=== PATIENT | male | born 1975 | race Caucasian/White ===

== ENCOUNTER 2017-08-01 10:59 | Emergency (ER) | payer OTHER ==
[~2017-08-01] VITALS: Ht 177.8 cm; Wt 107.7 kg
[2017-08-01] MEDS ORDERED: ROBAXIN500 MG PO (12:31)
[2017-08-01] MEDS ORDERED: MEDROL DOSEPAK4 MG PO (12:31)
[2017-08-01] MEDS ORDERED: PERCOCET 5/31 TABLET PO (12:31)
[2017-08-01 12:42] LABS: APPEARANCE CLEAR ((CLEAR)); BILIRUBIN NEGATIVE; BLOOD SMALL; COLOR YELLOW ((YELLOW)); GLUCOSE (STRIP) NEGATIVE; KETONES 5; LEUKOCYTES NEGATIVE; NITRITE NEGATIVE; PROTEIN (STRIP) 30; SPECIFIC GRAVITY 1.032 (1.000-1.030); UROBILINOGEN 0.2 MG/DL (0.2-1.0)
[2017-08-01 12:48] LABS: BACTERIA RARE /HPF; CALCIUM OXALATE CRYSTALS 1+ /HPF; EPITHELIAL CELLS RARE /HPF; HYALINE CASTS 0-5 /LPF; MUCUS 2+ /LPF; RED BLOOD CELLS 15-20 /HPF (0-5); UCUL ADDED? NO; WHITE BLOOD CELLS 0-5 /HPF (0-5)
[2017-08-01] MEDS ORDERED: ULTRAM50 MG PO (13:06)
[2017-08-01 13:16] VITALS: BP 158/103
== END 2017-08-01 13:17 | disposition home or self-care (01) ==
LOC: EME 10:59
PROVIDERS: Physician Assistant
DX: M54.5 Low back pain (principal); M54.16 Radiculopathy, lumbar region; R31.29 Other microscopic hematuria; J45.909 Unspecified asthma, uncomplicated; Z91.81 History of falling
CPT/HCPCS: 72100; 73502; 81003; 93971; 99281; 99283